=== PATIENT | female | born 1935 | race Caucasian/White ===

== ENCOUNTER 2022-06-03 11:11 | Emergency (ER) | payer OTHER ==
[~2022-06-03] VITALS: Ht 149.9 cm; Wt 52.2 kg
--- NOTE | 2022-06-03 11:20 | NUR ---
PATIENT IN BED AAOX3 SPEECH MILDLY SLUR ACCORDING TO DAUGHTER, ON VIDEO PRODUCTION ENGINEER, AWAITING FOR EDP FOR INITIAL ASSESSMENT.
--- NOTE | 2022-06-03 11:33 | NUR ---
ER at bedside examining patient.
[2022-06-03 11:34] VITALS: BP_SYST 139
--- NOTE | 2022-06-03 11:55 | NUR ---
DR GREY ON TELE NEURO
--- NOTE | 2022-06-03 12:10 | NUR ---
B/S BY F/S 92MG/DL.
[2022-06-03 12:34] LABS: BASOPHILS % (AUTO) 0.5 % (0.0-2.0); EOSINOPHILS % (AUTO) 0.8 % (0.0-4.0); HEMATOCRIT 37.7 % (36-48); HEMOGLOBIN 12.8 g/dL (12.0-16.0); LYMPHOCYTES % (AUTO) 17.7 % (20.5-51.5); MEAN CORPUSCULAR HEMOGLOBIN 35 pg (27-31); MEAN CORPUSCULAR HGB CONC 34 % (32-36); MEAN CORPUSCULAR VOLUME 102 fL (79.0-98.0); MONOCYTES # (AUTO) 0.4 K/uL (0.0-1.0); MONOCYTES % (AUTO) 7.7 % (1.7-9.3); NEUTROPHILS # (AUTO) 4.1 K/uL (1.8-7.7); NEUTROPHILS % (AUTO) 73.3 % (40.0-70.0); PLATELET COUNT (AUTO) 243 K/uL (130-430); RED CELL DISTRIBUTION WIDTH 12.9 % (9.0-15.0); WHITE BLOOD COUNT (AUTO) 5.6 K/uL (4.8-10.8)
[2022-06-03 12:38] LABS: ANION GAP 9 (5-15); CALCIUM 10.1 mg/dL (8.4-11.0); CHLORIDE 101 mmol/L (98-107); CREATININE 1.52 mg/dL (0.55-1.30); GLUCOSE 99 mg/dL (70-99); UREA NITROGEN, BLOOD 29 mg/dL (8-21)
[2022-06-03 12:45] LABS: ALANINE AMINOTRANSFERASE 20 U/L (12-78); ALBUMIN 3.8 g/dL (3.4-4.8); ASPARTATE AMINOTRANSFERASE 20 U/L (10-37); TOTAL BILIRUBIN 0.5 mg/dL (0.0-1.0)
[2022-06-03] MEDS ORDERED: iohexoL 350 mgI/mL, 100 ML INFUS..BTL IV ONE (13:11)
[2022-06-03] MEDS ORDERED: NACL 0.9% 1,000 ML IV ONE (13:15)
--- NOTE | 2022-06-03 13:27 | NUR ---
PATIENT TAKEN TO CT SCAN.
--- NOTE | 2022-06-03 13:45 | NUR ---
PATIENT IS BACK, FAMILY MEMBER AT BEDSIDE.
--- NOTE | 2022-06-03 15:06 | NUR ---
PATIENT ASSISTED TO BEDPAN FOR 300 YELLOW CLEAR URINE.
[2022-06-03] MEDS ORDERED: ASPI-1393 PO (15:44)
[2022-06-03] MEDS ORDERED: CLOP75TA32 PO (15:44)
--- NOTE | 2022-06-03 15:50 | NUR ---
ALL RESULT BACK, EDP REASSESS PATIENT AND D/C HOME WITH INSTRUCTION.
--- NOTE | 2022-06-03 16:06 | NUR ---
Patient given written and verbal discharge instructions and verbalizes understanding. ER MD discussed with patient the results and treatment provided. Patient in stable condition. ID arm band removed. IV catheter removed intact and dressing applied, no active bleeding. Rx of ASPIRIN/PLAVIX given. Patient educated on pain management and to follow up with PMD. Pain Scale 0. Opportunity for questions provided and answered. Medication side effect fact sheet provided.
== END 2022-06-03 16:01 | disposition home or self-care (01) ==
LOC: SED 11:11
DX: I12.9 Hypertensive chronic kidney disease with stage 1 through stage 4 chronic kidney disease, or unspecified chronic kidney disease (principal); N17.9 Acute kidney failure, unspecified; R47.81 Slurred speech; R41.0 Disorientation, unspecified; Z79.899 Other long term (current) drug therapy
CPT/HCPCS: 99285; 70450; 96360; 71045; 80053; 82550; 85025; 84484; 36415; 93005; 70496; 70498; 83605; 76376; Q9967; J7030